=== PATIENT | female | born 1945 | race Two or more races ===

== ENCOUNTER → 2016-02-16 | Outpatient (CLI) | payer MEDICARE, MEDICAID ==
[~2016-02-16] MED LIST: ATIVAN0.5 MG ORAL; CRESTOR20 MG ORAL; JANUMET 50-5001 EACH ORAL; NEXIUM40 MG ORAL; PREDNISONE1 MG PO; RANITIDINE HCL150 MG ORAL; ZYRTEC10 MG ORAL
[2016-02-16 14:36] VITALS: BP 112/64
--- NOTE | 2016-02-16 15:28 | GI Progress Note ---
Assessment/Plan Problems: (1) Abdominal pain ICD Codes: R10.9 - Unspecified abdominal pain SNOMED: 83901937 (2) Small intestinal bacterial overgrowth ICD Codes: K63.89 - Other specified diseases of intestine SNOMED: 077838473 (3) Gastritis ICD Codes: K29.70 - Gastritis, unspecified, without bleeding SNOMED: 3074957 (4) Diabetes mellitus ICD Codes: E11.9 - Type 2 diabetes mellitus without complications SNOMED: 45696775 (5) Hemorrhoids ICD Codes: K64.9 - Unspecified hemorrhoids SNOMED: 61653336 (6) Anxiety ICD Codes: F41.9 - Anxiety disorder, unspecified SNOMED: 87309878 Status: stable Status Narrative Seen with Dr. Justice Assessment/Plan s/p rectal manometry >> s/p breath test >> positive, tx Xifaxan. cont Align RTC prn Subjective Subjective Abdominal Pain >> LUQ/LLQ/Epigastric >> decreased Abdominal bloating decreased. Pt took Zpak + levaquin. Feels better in stomach. Objective Last 24 Hour Vital Signs Date Time Temp Pulse Resp B/P Pulse Ox O2 Delivery O2 Flow Rate FiO2 02/16/16 14:36 97.6 74 16 112/64 General Appearance: no apparent distress, alert Cardiovascular: normal rate Respiratory/Chest: normal breath sounds, no respiratory distress Abdominal Exam: normal bowel sounds, non tender, soft Extremities: normal range of motion Objective F/U review for breath test. Mary Rg N.P. Feb 16, 2016 15:28
== END | disposition home or self-care (01) ==
LOC: PAN 14:27
DX: K29.70 Gastritis, unspecified, without bleeding (principal); R10.9 Unspecified abdominal pain; E11.9 Type 2 diabetes mellitus without complications; K64.9 Unspecified hemorrhoids; F41.9 Anxiety disorder, unspecified
CPT/HCPCS: 99211

== ENCOUNTER → 2016-04-10 | Outpatient (CLI) | payer MEDICARE, MEDICAID ==
--- NOTE | 2016-04-10 11:25 | GI Progress Note ---
Assessment/Plan Problems: (1) Small intestinal bacterial overgrowth ICD Codes: K63.89 - Other specified diseases of intestine SNOMED: 579290652 (2) Hemorrhoids ICD Codes: K64.9 - Unspecified hemorrhoids SNOMED: 96723761 (3) Abdominal pain ICD Codes: R10.9 - Unspecified abdominal pain SNOMED: 91344886 (4) Gastritis ICD Codes: K29.70 - Gastritis, unspecified, without bleeding SNOMED: 5491943 (5) Anxiety ICD Codes: F41.9 - Anxiety disorder, unspecified SNOMED: 64525524 (6) Diabetes mellitus ICD Codes: E11.9 - Type 2 diabetes mellitus without complications SNOMED: 89516210 (7) Rectal pain ICD Codes: K62.89 - Other specified diseases of anus and rectum SNOMED: 55863061 Status: stable Status Narrative Seen with Dr. Justice. Assessment/Plan rx Bentyl 20 q8hr Ativan prn RTC prn Subjective Subjective c/o of rectal discomfort Objective T 97.7 BP 123/79 P 79 98 RA Weight (Pounds): 163 General Appearance: no apparent distress, alert Cardiovascular: normal rate Respiratory/Chest: normal breath sounds, no respiratory distress Abdominal Exam: normal bowel sounds, non tender, soft Extremities: normal range of motion Mary Rg N.P. Apr 10, 2016 11:25
[2016-04-10 16:40] VITALS: BP 123/79
== END | disposition home or self-care (01) ==
LOC: PAN 10:25
DX: K64.9 Unspecified hemorrhoids (principal); K63.89 Other specified diseases of intestine; R10.9 Unspecified abdominal pain; K29.70 Gastritis, unspecified, without bleeding; F41.9 Anxiety disorder, unspecified; E11.9 Type 2 diabetes mellitus without complications; K62.89 Other specified diseases of anus and rectum
CPT/HCPCS: 99211